=== PATIENT | male | born 1985 | race Caucasian/White ===

== ENCOUNTER 2017-11-24 11:21 | Observation (INO) | payer OTHER ==
[2017-11-24] MEDS ORDERED: Sodium Chloride 0.9% 1,000 ML IV ONE (12:24)
[2017-11-24] MEDS ORDERED: Sodium Chloride 0.9% 1,000 ML ONE (12:30)
--- NOTE | 2017-11-24 12:34 | C.PDOC ---
History Of Present Illness 32 year old male with history of heroin abuse presents to the ED requesting heroin detox. Patient states he used heroin IV with his last use being last night. Patient is also c/o of palpitations as well. Patient denies fever, chills , CP, SOB, cough, PE, SI/HI, abdominal pain. Time Seen by Provider: 11/24/17 12:08 Chief Complaint (Nursing): Substance Abuse History Per: Patient History/Exam Limitations: no limitations Onset/Duration Of Symptoms: Days Current Symptoms Are (Timing): Gone Suicide/Self Injury Attempted (Context): None Modifying Factor(s): Other (Heroin) Associated Symptoms: denies: Depression, Suicidal Thoughts, Suicidal Plan Involuntary Hold By: None Recent travel outside of the [place]: No Additional History Per: Patient Past Medical History Reviewed: Historical Data, Nursing Documentation, Vital Signs Vital Signs: Last Vital Signs Temp 98 F 11/24/17 11:30 Pulse 131 H 11/24/17 14:29 Resp 20 11/24/17 14:29 BP 108/64 11/24/17 14:29 Pulse Ox 100 11/24/17 15:32 - Medical History PMH: No Chronic Diseases Surgical History: No Surg Hx Family History: States: Unknown Family Hx - Social History Hx Alcohol Use: No Hx Substance Use: Yes - Immunization History Hx Tetanus Toxoid Vaccination: No Hx Influenza Vaccination: No Hx Pneumococcal Vaccination: No Review Of Systems Constitutional: Negative for: Fever, Chills Cardiovascular: Positive for: Palpitations Respiratory: Negative for: Cough, Shortness of Breath Gastrointestinal: Negative for: Nausea, Vomiting, Abdominal Pain Skin: Negative for: Rash Neurological: Negative for: Weakness, Numbness, Headache Psych: Negative for: Depression, Suicidal ideation Physical Exam - Physical Exam Appears: Non-toxic, No Acute Distress Skin: Normal Color, Warm, Dry Head: Atraumatic, Normacephalic Eye(s): bilateral: Normal Inspection Nose: No Discharge, No Deformity Oral Mucosa: Moist Neck: Normal ROM, Supple Chest: Symmetrical Cardiovascular: Rhythm Regular (tachycardic, ectopic beats), No Murmur Respiratory: Normal Breath Sounds, No Rales, No Rhonchi, No Wheezing Gastrointestinal/Abdominal: Soft, No Tenderness, No Guarding, No Rebound Extremity: Normal ROM, No Pedal Edema, No Calf Tenderness, No Deformity, No Swelling Neurological/Psych: Oriented x3, Normal Speech, Normal Cognition Gait: Steady ED Course And Treatment - Laboratory Results Result Diagrams: 11/24/17 12:42 11/24/17 12:42 ECG: Interpreted By Me, Viewed By Me ECG Rhythm: Sinus Tachycardia Interpretation Of ECG: tachycardic 133 BPM with PACs noted, no ST or T wave abnormalities Rate From EC O2 Sat by Pulse Oximetry: 100 (On RA) Pulse Ox Interpretation: Normal - Radiology CXR: Viewed By Me, Read By Radiologist CXR Interpretation: Yes: Cardiomegaly, Other (Mild retrocardiac atelectasis or pneumonia.) Medical Decision Making Medical Decision Making: Impression : palpitations/tachycardia/substance abuse Plan: * EKG * Labs * CXR * Ativan 0.5 mg IVP * Iv fluids * UA Patient will be 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 Disposition Discussed With Dr.: Nitin Buenrostro Doctor Will See Patient In The: Hospital Counseled Patient/Family Regarding: Studies Performed, Diagnosis - Disposition Disposition: HOSPITALIZED Disposition Time: 15:33 Condition: FAIR Forms: [facility] (Kazakh) - Clinical Impression Clinical Impression: Drug abuse, Arrhythmia - Scribe Statement The provider has reviewed the documentation as recorded by the Scribe Jose L Castellanos All medical record entries made by the Scribe were at my direction and personally dictated by me. I have reviewed the chart and agree that the record accurately reflects my personal performance of the history, physical exam, medical decision making, and the department course for this patient. I have also personally directed, reviewed, and agree with the discharge instructions and disposition.
[2017-11-24 12:47] LABS: BASO % 0.4 % (0.0-2.0); EOS # 0.4 K/uL (0.0-0.7); EOS % 5.3 % (0.0-4.0); LYMPH # 3.4 K/uL (1.0-4.3); LYMPH % 41.3 % (20.0-40.0); MEAN CORPUSCULAR HEMOGLOBIN 28.2 pg (27.0-31.0); MEAN CORPUSCULAR HGB CONC 34.3 g/dL (33.0-37.0); MEAN PLATELET VOLUME 7.7 fL (7.2-11.7); MONO # 0.5 K/uL (0.0-0.8); MONO % 5.8 % (0.0-10.0); NEUT # 3.9 K/uL (1.8-7.0); NEUT % 47.2 % (50.0-75.0); NRBC % 0.1 % (0.0-2.0); RBC 4.6 Mil/uL (4.40-5.90); RED CELL DISTRIBUTION WIDTH 12.4 % (11.5-14.5); WHITE BLOOD COUNT 8.2 K/uL (4.8-10.8)
[2017-11-24 12:58] LABS: ALB/GLOB RATIO 1.1 (1.0-2.1); ALBUMIN 3.9 g/dL (3.5-5.0); ALT/SGPT 34 U/L (21-72); AST/SGOT 21 U/L (17-59); BLOOD UREA NITROGEN 17 mg/dL (9-20); CALCIUM 8.6 mg/dl (8.6-10.4); GFR AFRICAN-AMERICAN > 60; GFR NON-AFRICAN AMERICAN > 60; PROTHROMBIN TIME 11.7 SECONDS (9.7-12.2)
--- NOTE | 2017-11-24 13:24 | RAD ---
HISTORY: chest pain COMPARISON: None available. TECHNIQUE: Chest PA and lateral FINDINGS: LUNGS: Mild retrocardiac atelectasis or pneumonia. Please note that chest x-ray has limited sensitivity for the detection of pulmonary masses. PLEURA: No significant pleural effusion identified. No definite pneumothorax . CARDIOVASCULAR: Cardiomegaly with CTR approximately 17.8/31.3. OSSEOUS STRUCTURES: No acute osseous abnormality identified. VISUALIZED UPPER ABDOMEN: Unremarkable. OTHER FINDINGS: None. IMPRESSION: Cardiomegaly. Mild retrocardiac atelectasis or pneumonia.
[2017-11-24 13:28] LABS: FREE T4 1.1 ng/dL (0.78-2.19)
[2017-11-24] MEDS ORDERED: Metoprolol 1 mg/ml Inj IVP ONE ×2 (14:42→15:50)
[2017-11-24 15:35] LABS: SQUAMOUS EPITHIAL < 1 /hpf (0-5); URINE BACTERIA RARE (<OCC); URINE BILIRUBIN NEGATIVE (NEGATIVE); URINE BLOOD NEGATIVE (NEGATIVE); URINE CLARITY Clear (Clear); URINE COLOR Yellow (YELLOW); URINE GLUCOSE (UA) NORMAL (Normal); URINE LEUKOCYTE ESTERASE NEG Leu/uL (Negative); URINE NITRATE NEGATIVE (NEGATIVE); URINE PROTEIN NEGATIVE (NEGATIVE); URINE UROBILINOGEN NORMAL mg/dL (0.2-1.0)
[2017-11-24 15:49] LABS: BARBITURATES, UR NEGATIVE (NEGATIVE); BENZODIAZEPINES, UR NEGATIVE (NEGATIVE); PHENCYCLIDINE, UR NEGATIVE (NEGATIVE)
[2017-11-24 15:50] LABS: OPIATES, UR POSITIVE (NEGATIVE)
[2017-11-24] MEDS ORDERED: Digoxin 500 mcg/2ml (0.5 mg/2ml) Inj ONE (18:22)
[2017-11-24] MEDS ORDERED: Digoxin 500 mcg/2ml (0.5 mg/2ml) Inj IVP ONE (19:25)
[2017-11-24 19:26] VITALS: PULSE 129
--- NOTE | 2017-11-24 20:25 | CP.PCM.HP ---
History of Present Illness - History of Present Illness History of Present Illness: 32 year old male with a no pertinent medical history comes into [facility] requesting detox from Heroin. The patient states that he has been a heroin user for about three years. The patient denies any inciting event leading to heroin abuse. The patient couldn't specify the specific amount at the time of the interview. The patient does report his last use was last night. The patient racing heart and palpitations. The patient denies any alleviating or modifying factors. The patient denies any chest pain, shortness of breath, fevers, chills, nausea, vomiting, headaches, changes in vision, abdomen pain, numbness or tingling in the lower and upper extremities or any other complaints. PMD: Denies Past medical history: Denies Medications: Erik Allergies: NKDA Surgical history: Right hand surgery Social history: Denies tobacco and illicit drug use. Last drink was 1 year ago. Heroin User for the past three years. Lives alone. Unemployed. Present on Admission - Present on Admission Any Indicators Present on Admission: No Review of Systems - Constitutional Constitutional: absent: Chills, Daytime Sleepiness, Headache, Night Sweats, Snoring, Weakness - EENT Eyes: absent: Blurred Vision, Discharge, Loss of Peripheral Vision, Requires Corrective Lenses, Other Visual Disturbances Ears: absent: Ear Discharge, Dizziness Nose/Mouth/Throat: absent: Nasal Congestion, Nose Pain, Bleeding Gums, Halitosis , Mouth Pain, Facial Pain - Cardiovascular Cardiovascular: Palpitations, Rapid Heart Rate. absent: Chest Pain, Diaphoresis , Irregular Heart Rhythm, Leg Edema, Lightheadedness, Orthopnea - Respiratory Respiratory: absent: Dyspnea, Hemoptysis, Stridor, Pain on Inspiration - Gastrointestinal Gastrointestinal: absent: Abdominal Pain, Change in Stool Character, Diarrhea, Dyspepsia, Dysphagia, Melena, Nausea, Temesmus, Vomiting - Genitourinary Genitourinary: absent: Hematuria, Freq UTI - Musculoskeletal Musculoskeletal: absent: Abnormal Gait, Arthralgias, Neck Pain, Stiffness, Tingling - Integumentary Integumentary: absent: Rash, Skin Pain, Sores, Unusual Bruising - Neurological Neurological: absent: Syncope, Tingling, Tremor, Vertigo, Weakness - Psychiatric Psychiatric: absent: Change in Appetite, Difficulty Concentrating, Panic Attacks - Endocrine Endocrine: absent: Polydipsia, Polyphagia, Polyuria Past Patient History - Past Social History Smoking Status: Heavy Smoker > 10 Cigarettes Daily - PSYCHIATRIC Hx Substance Use: Yes - SURGICAL HISTORY Hx Surgeries: Yes Other/Comment: RtCarol ariza surgery - ANESTHESIA Hx Anesthesia: No Hx Anesthesia Reactions: No Meds Allergies/Adverse Reactions: Allergies Allergy/AdvReac Type Severity Reaction Status Date / Time No Known Allergies Allergy Unverified 11/24/17 11:32 Physical Exam - Head Exam Head Exam: ATRAUMATIC, NORMAL INSPECTION, NORMOCEPHALIC - Eye Exam Eye Exam: EOMI, Normal appearance, PERRL Pupil Exam: NORMAL ACCOMODATION, PERRL - ENT Exam ENT Exam: Mucous Membranes Moist, Normal Oropharynx - Neck Exam Neck exam: Positive for: Normal Inspection. Negative for: Lymphadenopathy, Thyromegaly - Respiratory Exam Respiratory Exam: Clear to Auscultation Bilateral, NORMAL BREATHING PATTERN. absent: Chest Wall Tenderness, Prolonged Expiratory Phase, Respiratory Distress - Cardiovascular Exam Cardiovascular Exam: Tachycardia, REGULAR RHYTHM, RRR, +S1, +S2. absent: Gallop , Rubs - GI/Abdominal Exam GI & Abdominal Exam: Normal Bowel Sounds, Soft. absent: Distended, Hypoactive Bowel Sounds, Organomegaly, Tenderness - Extremities Exam Extremities exam: Positive for: full ROM, normal inspection. Negative for: joint swelling, pedal edema - Back Exam Back exam: NORMAL INSPECTION. absent: CVA tenderness (L), CVA tenderness (R), paraspinal tenderness - Neurological Exam Neurological exam: Alert, CN II-XII Intact, Normal Gait, Oriented x3 - Psychiatric Exam Psychiatric exam: Normal Affect, Normal Mood - Skin Skin Exam: Dry, Intact, Normal Color, Warm Results - Vital Signs Recent Vital Signs: Last Vital Signs Temp 98.9 F 11/24/17 19:15 Pulse 124 H 11/24/17 19:15 Resp 18 11/24/17 19:15 BP 107/74 11/24/17 19:15 Pulse Ox 96 11/24/17 19:15 - Labs Result Diagrams: 11/24/17 12:42 11/24/17 12:42 Labs: Laboratory Results - last 24 hr 11/24/17 11/24/17 11/24/17 12:42 12:42 12:42 WBC 8.2 RBC 4.60 Hgb 13.0 Hct 37.8 MCV 82.0 MCH 28.2 MCHC 34.3 RDW 12.4 Plt Count 328 MPV 7.7 Neut % (Auto) 47.2 L Lymph % (Auto) 41.3 H [place] % (Auto) 5.8 Eos % (Auto) 5.3 H Baso % (Auto) 0.4 Neut # 3.9 Lymph # 3.4 Jackson # 0.5 Eos # 0.4 Baso # 0.0 PT 11.7 INR 1.0 APTT 31 D-Dimer, Quantitative 240 Sodium 132 Potassium 3.8 Chloride 98 Carbon Dioxide 25 Anion Gap 12 BUN 17 Creatinine 0.7 L Est GFR ( Amer) > 60 Est GFR (Non-Af Amer) > 60 Random Glucose 108 Calcium 8.6 Total Bilirubin 0.4 AST 21 ALT 34 Alkaline Phosphatase 108 Troponin I < 0.0120 Total Protein 7.4 Albumin 3.9 Globulin 3.5 Albumin/Globulin Ratio 1.1 Free T4 TSH 3rd Generation Urine Color Urine Clarity Urine pH Ur Specific [place] Urine Protein Urine Glucose (UA) Urine Ketones Urine Blood Urine Nitrate Urine Bilirubin Urine Urobilinogen Ur Leukocyte Esterase Urine WBC (Auto) Ur Squamous Epith Cells Urine Bacteria Urine Opiates Screen Urine Methadone Screen Ur Barbiturates Screen Ur Phencyclidine Scrn Ur Amphetamines Screen U Benzodiazepines Scrn U Oth Cocaine Metabols U Cannabinoids Screen Alcohol, Quantitative < 10 11/24/17 11/24/17 11/24/17 12:42 15:24 15:24 WBC RBC Hgb Hct MCV MCH MCHC RDW Plt Count MPV Neut % (Auto) Lymph % (Auto) [place] % (Auto) Eos % (Auto) Baso % (Auto) Neut # Lymph # Jackson # Eos # Baso # PT INR APTT D-Dimer, Quantitative Sodium Potassium Chloride Carbon Dioxide Anion Gap BUN Creatinine Est GFR ( Amer) Est GFR (Non-Af Amer) Random Glucose Calcium Total Bilirubin AST ALT Alkaline Phosphatase Troponin I Total Protein Albumin Globulin Albumin/Globulin Ratio Free T4 1.10 TSH 3rd Generation 2.39 Urine Color Yellow Urine Clarity Clear Urine pH 5.0 Ur Specific [place] 1.025 Urine Protein Negative Urine Glucose (UA) Normal Urine Ketones Negative Urine Blood Negative Urine Nitrate Negative Urine Bilirubin Negative Urine Urobilinogen Normal Ur Leukocyte Esterase Neg Urine WBC (Auto) < 1 Ur Squamous Epith Cells < 1 Urine Bacteria Rare Urine Opiates Screen Positive H Urine Methadone Screen Negative Ur Barbiturates Screen Negative Ur Phencyclidine Scrn Negative Ur Amphetamines Screen Negative U Benzodiazepines Scrn Negative U Oth Cocaine Metabols Negative U Cannabinoids Screen Negative Alcohol, Quantitative Assessment & Plan - Assessment and Plan (Free Text) Assessment: 32 year old with a past medical history of heroin abuse admitted for new onset atrial fibrillation. Plan: 1.Atrial fibrillation -Patient irregular rhythm broke and now is Sinus tacky at 128. -Will continue to monitor. -Echo ordered. Will f/u with results. -Troponins (-)x1. Will f/u with the remaining 2 Troponins and EKG. -Cardiology(Dr. Frank) consulted. Will f/u with results. 2.Heroin Detox -Psych consulted (Dr. Maikol Fall) -Clonidine .1mg PO Q8 prn Ppx -SCD's -Protonix 40mg Daily Discussed with Dr. Nitin Buenrosrto.
[2017-11-25 00:33] VITALS: RESP 20
[2017-11-25 04:42] LABS: MEAN PLATELET VOLUME 7.5 fL (7.2-11.7)
[2017-11-25 04:46] LABS: BASO % 0.4 % (0.0-2.0); EOS # 0.3 K/uL (0.0-0.7); EOS % 3.3 % (0.0-4.0); HEMOGLOBIN 14.5 g/dL (12.0-18.0); LYMPH # 2.3 K/uL (1.0-4.3); LYMPH % 27.5 % (20.0-40.0); MEAN CORPUSCULAR HEMOGLOBIN 28.3 pg (27.0-31.0); MEAN CORPUSCULAR HGB CONC 34.9 g/dL (33.0-37.0); MONO # 0.4 K/uL (0.0-0.8); MONO % 4.9 % (0.0-10.0); NEUT # 5.3 K/uL (1.8-7.0); NEUT % 63.9 % (50.0-75.0); NRBC % 0.1 % (0.0-2.0); RBC 5.14 Mil/uL (4.40-5.90); RED CELL DISTRIBUTION WIDTH 12.7 % (11.5-14.5); WHITE BLOOD COUNT 8.3 K/uL (4.8-10.8)
[2017-11-25 04:58] LABS: ALB/GLOB RATIO 1.1 (1.0-2.1); ALT/SGPT 33 U/L (21-72); AST/SGOT 23 U/L (17-59); BLOOD UREA NITROGEN 12 mg/dL (9-20); CALCIUM 9.4 mg/dl (8.6-10.4); GFR AFRICAN-AMERICAN > 60; GFR NON-AFRICAN AMERICAN > 60
[2017-11-25 08:03] VITALS: TEMP 98.5; O2SAT 97
[2017-11-25] MEDS ORDERED: Enoxaparin 80 mg Syringe SC SCH (10:45)
--- NOTE | 2017-11-25 11:19 | CP.PCM.PN ---
Subjective - Date & Time of Evaluation Date of Evaluation: 11/25/17 Time of Evaluation: 06:17 - Subjective Subjective: Dr. Nitin Farmer, [place] Captain-PGY1 Patient was seen and examined at bedside. Per nursing, no acute events occurred overnight. The patient reports feeling fine this morning. He says he feels a little bit of his heart racing fast but only when he get up to go to the restroom. The patient denies any chest pain, shortness of breath, fevers, chills, changes in vision, lightheadedness, abdominal pain, constipation, diarrhea, or any other complaints. Objective - Vital Signs/Intake and Output Vital Signs (last 24 hours): Temp Pulse Resp BP Pulse Ox 98.5 F 130 H 20 109/73 97 11/25/17 07:00 11/25/17 07:00 11/25/17 07:00 11/25/17 07:00 11/25/17 07:00 Intake and Output: 11/25/17 11/25/17 06:59 18:59 Output Total 800 Balance -800 - Medications Medications: Current Medications Carvedilol (Coreg) 3.125 mg PO BID ANTON Clonidine HCl (Catapres) 0.1 mg PO Q8 ANTON Enoxaparin Sodium (Lovenox) 80 mg SC Q12 ANTON Lisinopril (Zestril) 5 mg PO DAILY ANTON Pantoprazole Sodium (Protonix Inj) 40 mg IVP DAILY ANTON Last Admin: 11/25/17 09:52 Dose: 40 mg Pneumococcal Polyvalent Vaccine (Pneumovax 23 Vaccine) 0.5 ml IM .ONCE ONE Stop: 11/26/17 10:01 - Labs Labs: 11/25/17 04:38 11/25/17 04:38 PT 11.7 SECONDS (9.7-12.2) 11/24/17 12:42 INR 1.0 11/24/17 12:42 APTT 31 SECONDS (21-34) 11/24/17 12:42 - Head Exam Head Exam: ATRAUMATIC, NORMAL INSPECTION, NORMOCEPHALIC - Eye Exam Eye Exam: EOMI, Normal appearance, PERRL Pupil Exam: NORMAL ACCOMODATION, PERRL. absent: Irregular, Unequal - ENT Exam ENT Exam: Mucous Membranes Moist, Normal Exam, Normal Oropharynx - Neck Exam Neck Exam: Normal Inspection. absent: Lymphadenopathy, Thyromegaly - Respiratory Exam Respiratory Exam: Clear to Ausculation Bilateral, NORMAL BREATHING PATTERN. absent: Chest Wall Tenderness, Prolonged Expiratory Phase, Respiratory Distress - Cardiovascular Exam Cardiovascular Exam: REGULAR RHYTHM, +S1, +S2 - GI/Abdominal Exam GI & Abdominal Exam: Soft, Normal Bowel Sounds. absent: Rigid, Tenderness - Extremities Exam Additional comments: Track kim noted bilateral upper extremities. - Back Exam Back Exam: NORMAL INSPECTION. absent: CVA tenderness (L), CVA tenderness (R), paraspinal tenderness - Neurological Exam Neurological Exam: Alert, Awake, CN II-XII Intact, Oriented x3 - Psychiatric Exam Psychiatric exam: Normal Affect, Normal Mood - Skin Skin Exam: Dry, Intact Assessment and Plan - Assessment and Plan (Free Text) Assessment: 32 year old with a past medical history of heroin abuse admitted for new onset atrial fibrillation. Plan: 1.Atrial fibrillation -Patient irregular rhythm broke and now is Sinus tacky at 128. -Will continue to monitor. -Echo ordered. Will f/u with results. -Troponins (-)x3. -EKG showed 1st degree and 2nd degree heart block. Dr. Frank was made aware. -Cardiology(Dr. Frank) consulted. Will f/u with results. 2.Heroin Detox -Psych consulted (Dr. Maikol Fall) -Continue Clonidine .1mg PO Q8 prn Ppx -SCD's -Protonix 40mg Daily
--- NOTE | 2017-11-25 12:50 | PCM.PSYCH ---
Initial Psychiatric Evaluation - Initial Psychiatric Evaluation Type of Admission: Voluntary Legal Status: Capacity Past Psychiatric History - Past Psychiatric History Pertinent Medical Hx (Current Medical&Sleep Prob, Allergies): Allergies Allergy/AdvReac Type Severity Reaction Status Date / Time No Known Allergies Allergy Unverified 11/24/17 11:32 No Known Home Med 11/24/17
--- NOTE | 2017-11-25 12:53 | CP.PCM.DIS ---
Provider - Provider Date of Admission: 11/24/17 15:32 Attending physician: Nitin Buenrostro MD Primary care physician: PMD: None Consults: Psychiatry: Maikol Thurston Cardiology:Dr. Frank Time Spent in preparation of Discharge (in minutes): 45 Hospital Course - Lab Results Lab Results: Most Recent Lab Values WBC 8.3 K/uL (4.8-10.8) 11/25/17 04:38 RBC 5.14 Mil/uL (4.40-5.90) 11/25/17 04:38 Hgb 14.5 g/dL (12.0-18.0) 11/25/17 04:38 Hct 41.6 % (35.0-51.0) 11/25/17 04:38 MCV 81.0 fL (80.0-94.0) 11/25/17 04:38 MCH 28.3 pg (27.0-31.0) 11/25/17 04:38 MCHC 34.9 g/dL (33.0-37.0) 11/25/17 04:38 RDW 12.7 % (11.5-14.5) 11/25/17 04:38 Plt Count 350 K/uL (130-400) 11/25/17 04:38 MPV 7.5 fL (7.2-11.7) 11/25/17 04:38 Neut % (Auto) 63.9 % (50.0-75.0) 11/25/17 04:38 Lymph % (Auto) 27.5 % (20.0-40.0) 11/25/17 04:38 [place] % (Auto) 4.9 % (0.0-10.0) 11/25/17 04:38 Eos % (Auto) 3.3 % (0.0-4.0) 11/25/17 04:38 Baso % (Auto) 0.4 % (0.0-2.0) 11/25/17 04:38 Neut # 5.3 K/uL (1.8-7.0) 11/25/17 04:38 Lymph # 2.3 K/uL (1.0-4.3) 11/25/17 04:38 [place] # 0.4 K/uL (0.0-0.8) 11/25/17 04:38 Eos # 0.3 K/uL (0.0-0.7) 11/25/17 04:38 Baso # 0.0 K/uL (0.0-0.2) 11/25/17 04:38 PT 11.7 SECONDS (9.7-12.2) 11/24/17 12:42 INR 1.0 11/24/17 12:42 APTT 31 SECONDS (21-34) 11/24/17 12:42 D-Dimer, Quantitative 240 ng/mlDDU (0-243) 11/24/17 12:42 Sodium 136 mmol/L (132-148) 11/25/17 04:38 Potassium 4.2 mmol/L (3.6-5.2) 11/25/17 04:38 Chloride 105 mmol/L (98-107) 11/25/17 04:38 Carbon Dioxide 24 mmol/L (22-30) 11/25/17 04:38 Anion Gap 11 (10-20) 11/25/17 04:38 BUN 12 mg/dL (9-20) 11/25/17 04:38 Creatinine 0.7 mg/dL (0.8-1.5) L 11/25/17 04:38 Est GFR ( Amer) > 60 11/25/17 04:38 Est GFR (Non-Af Amer) > 60 11/25/17 04:38 Random Glucose 104 mg/dL (75-110) 11/25/17 04:38 Calcium 9.4 mg/dl (8.6-10.4) 11/25/17 04:38 Total Bilirubin 0.7 mg/dL (0.2-1.3) 11/25/17 04:38 AST 23 U/L (17-59) 11/25/17 04:38 ALT 33 U/L (21-72) 11/25/17 04:38 Alkaline Phosphatase 114 U/L (38-126) 11/25/17 04:38 Troponin I < 0.0120 ng/mL (0.00-0.120) 11/25/17 04:38 Total Protein 7.6 g/dL (6.3-8.3) 11/25/17 04:38 Albumin 4.0 g/dL (3.5-5.0) 11/25/17 04:38 Globulin 3.6 gm/dL (2.2-3.9) 11/25/17 04:38 Albumin/Globulin Ratio 1.1 (1.0-2.1) 11/25/17 04:38 Free T4 1.10 ng/dL (0.78-2.19) 11/24/17 12:42 TSH 3rd Generation 2.39 mIU/L (0.46-4.68) 11/24/17 12:42 Urine Color Yellow (YELLOW) 11/24/17 15:24 Urine Clarity Clear (Clear) 11/24/17 15:24 Urine pH 5.0 (5.0-8.0) 11/24/17 15:24 Ur Specific [place] 1.025 (1.003-1.030) 11/24/17 15:24 Urine Protein Negative mg/dL (NEGATIVE) 11/24/17 15:24 Urine Glucose (UA) Normal mg/dL (Normal) 11/24/17 15:24 Urine Ketones Negative mg/dL (NEGATIVE) 11/24/17 15:24 Urine Blood Negative (NEGATIVE) 11/24/17 15:24 Urine Nitrate Negative (NEGATIVE) 11/24/17 15:24 Urine Bilirubin Negative (NEGATIVE) 11/24/17 15:24 Urine Urobilinogen Normal mg/dL (0.2-1.0) 11/24/17 15:24 Ur Leukocyte Esterase Neg [place]/uL (Negative) 11/24/17 15:24 Urine WBC (Auto) < 1 /hpf (0-5) 11/24/17 15:24 Ur Squamous Epith Cells < 1 /hpf (0-5) 11/24/17 15:24 Urine Bacteria Rare (<OCC) 11/24/17 15:24 Urine Opiates Screen Positive (NEGATIVE) H 11/24/17 15:24 Urine Methadone Screen Negative (NEGATIVE) 11/24/17 15:24 Ur Barbiturates Screen Negative (NEGATIVE) 11/24/17 15:24 Ur Phencyclidine Scrn Negative (NEGATIVE) 11/24/17 15:24 Ur Amphetamines Screen Negative (NEGATIVE) 11/24/17 15:24 U Benzodiazepines Scrn Negative (NEGATIVE) 11/24/17 15:24 U Oth Cocaine Metabols Negative (NEGATIVE) 11/24/17 15:24 U Cannabinoids Screen Negative (NEGATIVE) 11/24/17 15:24 Alcohol, Quantitative < 10 mg/dl (0-10) 11/24/17 12:42 - Hospital Course Hospital Course: PMD: None Consults: Cardiology (Dr. Frank) Psychiatry (Maikol Thurston) PRINCIPAL DISCHARGE DIAGNOSES: Heroin Abuse CC: AMS HISTORY OF PRESENT ILLNESS:32 year old male with a no pertinent medical history comes into [facility] requesting detox from Heroin. The patient states that he has been a heroin user for about three years. The patient denies any inciting event leading to heroin abuse. The patient couldn't specify the specific amount at the time of the interview. The patient does report his last use was last night. The patient racing heart and palpitations. The patient denies any alleviating or modifying factors. The patient denies any chest pain, shortness of breath, fevers, chills, nausea, vomiting, headaches, changes in vision, abdomen pain, numbness or tingling in the lower and upper extremities or any other complaints. SUMMARY OF COURSE: 32 year old male admitted to [facility] between 11/24/17 -11/25/17 seeking heroin detox. While in the hospital it he was found to be in rapid atrial fibrillation with RVR. He was given 10mg Cardizem and 5mg Labetolol that converted him to sinus rhythm. Troponins were found to be negative times three. Repeat EKG showed the patient was going between 1st and 2nd degree heart block. We alerted Dr. Frank of this in the morning. While admitted the patient was seen by Eufemia Tim. The patient later in the day was found to be in rapid Afib. A cardizem 10mg push was ordered. However when I went to go administer it the patient was found to have eloped. A code ECHO was called in hopes of finding him however we couldn't locate the patient. Imaging: ECG 11/25: Rapid atrial fibrillation Echo: Taken. Not officially read before discharge. Disposition: Patient eloped with line still in place. Advised the patient to remain in the room so we could administer the Cardizem. Stressed to the patient the importance of staying and that his heart rate was dangerously high. Patient said that he couldn't wait. Upon returning to the room the patient had eloped. Code Echo was called in hopes of catching him before he left but we were unsuccessful. Discharge Exam - Head Exam Head Exam: ATRAUMATIC, NORMAL INSPECTION, NORMOCEPHALIC Additional comments: Patient ELOPED. Unable to do exam. Discharge Plan - Follow Up Plan Condition: FAIR Disposition: ELOPED FROM NURSING UNIT
--- NOTE | 2017-11-25 15:52 | CARD ---
APPROVED REPORT EXAM: Two-dimensional and M-mode echocardiogram with Doppler and color Doppler. Other Information Quality : GoodRhythm : Atrial Fibrillation INDICATION Abnormal EKG/Arrhythmia Heroin Abuse 2D DIMENSIONS IVSd1.1 (0.7-1.1cm)LVDd5.3 (3.9-5.9cm) PWd1.1 (0.7-1.1cm)LVDs4.7 (2.5-4.0cm) FS (%) 9.7 %LVEF (%)21.1 (>50%) M-Mode DIMENSIONS RVDd2.41 (2.1-3.2cm)Left Atrium (MM)3.61 (2.5-4.0cm) IVSd1.12 (0.7-1.1cm)Aortic Root2.67 (2.2-3.7cm) LVDd5.50 (4.0-5.6cm)Aortic Cusp Exc.2.03 (1.5-2.0cm) PWd0.94 (0.7-1.1cm)FS (%) 7 % LVDs5.09 (2.0-3.8cm)LVEF (%)16 (>50%) Mitral Valve MV E Gzzvpmgi09.9cm/sMV A Kderywvo344.0cm/sE/A ratio0.8 TDI E/Lateral E'0.0E/Medial E'0.0 Tricuspid Valve TR Peak Nxbuumwj353cp/sTR Peak Gr.38rwImDTHM80tiKj LEFT VENTRICLE The left ventricle is normal size. There is normal left ventricular wall thickness. The left ventricular function is severely reduced, with diffuse hypokinesis. Septal wall motion is worse. The left ventricular ejection fraction is about 15%. No regional wall motion abnormalities noted. The left ventricular diastolic function is indeterminate. tissue doppler is c/w elevated left atrial pressure. No left ventricle thrombus noted on this study. There is no ventricular septal defect visualized. There is no left ventricular aneurysm. There is no mass noted in the left ventricle. RIGHT VENTRICLE The right ventricle ismildly dilated There is normal right ventricular wall thickness. The right ventricular systolic function is moderately reduced. ATRIA The left atrial volume index is midl to modertely increased. The right atrium is moderately increased. The interatrial septum is intact with no evidence for an atrial septal defect. AORTIC VALVE The aortic valve is normal in structure and function. No aortic regurgitation is present. There is no aortic valvular stenosis. There is no aortic valvular vegetation. MITRAL VALVE The mitral valve is normal in structure and function. There is no evidence of mitral valve prolapse. There is no mitral valve stenosis. There is no mitral valve regurgitation noted. TRICUSPID VALVE The tricuspid valve is normal in structure and function. There is mild tricuspid valve regurgitation noted. Estimated PA sysolic pressure is 40 mm Hg There is no tricuspid valve prolapse or vegetation. There is no tricuspid valve stenosis. PULMONIC VALVE The pulmonary valve is normal in structure and function. There is no pulmonic valvular regurgitation. There is no pulmonic valvular stenosis. GREAT VESSELS The aortic root is normal in size. The ascending aorta is normal in size. The pulmonary artery is normal. The IVC is dilated and collapses <50% with inspiration. PERICARDIAL EFFUSION The pericardium appears normal. There is no pleural effusion. <Conclusion> Left ventricular function is severely reduced, with diffuse hypokinesis. Septal wall motion is worse. Left ventricular ejection fraction is about 15%. Left ventricular diastolic function is indeterminate. Tissue doppler is c/w elevated left atrial pressure. Right ventricular systolic function is moderately reduced. Left atrial volume index is mldl to moderately increased. Right atrium size is moderately increased.
--- NOTE | 2017-11-25 16:22 | CARD ---
APPROVED REPORT EKG Measurement Heart [id number] P43 [id number] <Conclusion> Normal Sinus with runs of atrial tachcyardia Abnormal ECG
--- NOTE | 2017-11-25 16:23 | CARD ---
APPROVED REPORT EKG Measurement Heart [id number] <Conclusion> Atrial tachycardia Otherwise normal ECG
[2017-11-25 18:24] VITALS: BP 109/76; PULSE 156
[2017-11-26] MEDS ORDERED: Influenza Vaccine 60 mcg/0.5 mL SYR (4YR UP) IM ONE (10:00)
[2017-11-26] MEDS ORDERED: Pneumococcal 23-Valent Vaccine IM ONE (10:00)
--- NOTE | 2017-11-26 12:48 | CARD ---
APPROVED REPORT EKG Measurement Heart [id number] DC 224P [id number] <Conclusion> Chaotic atrial tachycardia Abnormal EKG
== END 2017-11-25 12:46 | disposition left against medical advice (07) ==
LOC: C.ER 11:21 → C.9E 15:32 → C.6T 17:27
PROVIDERS: ADMIT Family Medicine; ATTEND Family Medicine
DX: I48.91 Unspecified atrial fibrillation (principal); F11.10 Opioid abuse, uncomplicated
CPT/HCPCS: 36415; 71046; 80053; 80320; 80324; 80345; 80346; 80349; 80353; 80358; 80361; 81001; 83992; 84439; 84443; 84484; 85025; 85378; 85610; 85730; 93005; 93306; 96360; 96374; 99285; C9113; G0378; J1160; J2060; J7040

== ENCOUNTER 2018-09-07 21:08 | Observation (INO) | payer MEDICAID ==
[2018-09-07 21:08] VITALS: PULSE 129
[2018-09-07] MEDS ORDERED: Lidocaine 1% Inj (20ml) INFIL ONE (22:25)
[2018-09-07] MEDS ORDERED: Lidocaine Hydrochloride 5 ML INJ ONE (22:26)
[2018-09-07 22:27] LABS: BASO % 0.3 % (0.0-2.0); EOS # 0.1 K/uL (0.0-0.7); MONO # 0.7 K/uL (0.0-0.8); RBC 4.83 Mil/uL (4.40-5.90)
[2018-09-07 22:32] LABS: ALB/GLOB RATIO 1.3 (1.0-2.1); ALBUMIN 4.5 g/dL (3.5-5.0); ALT/SGPT 23 U/L (21-72); AST/SGOT 29 U/L (17-59); BLOOD UREA NITROGEN 14 mg/dL (9-20); CALCIUM 9.4 mg/dl (8.6-10.4); GFR NON-AFRICAN AMERICAN > 60
--- NOTE | 2018-09-07 22:33 | C.PDOC ---
History Of Present Illness 33 year old male with PMHx of IVDA presents to the ED for evaluation of left wrist distal aspect pain and swelling. Patient denies fever, chills, nausea, vomit, diarrhea, skin popping, weakness, numbness. <Sharla Hooks - Last Filed: 09/07/18 22:54> History Per: Patient History/Exam Limitations: no limitations Onset/Duration Of Symptoms: Days Current Symptoms Are (Timing): Still Present Quality: "Pain" Recent travel outside of the [place]: No Additional History Per: Patient <Sharla Hooks - Last Filed: 09/07/18 22:54> <Paris Lees - Last Filed: 09/08/18 00:38> Time Seen by Provider: 09/07/18 21:23 Chief Complaint (Nursing): Upper Extremity Problem/Injury Past Medical History Reviewed: Historical Data, Nursing Documentation, Vital Signs Vital Signs: Last Vital Signs Temp 98.4 F 09/07/18 21:17 Pulse 75 09/07/18 21:17 Resp 18 09/07/18 21:17 BP 134/78 09/07/18 21:17 Pulse Ox 100 09/07/18 21:17 - Medical History Other PMH: IVDA Surgical History: No Surg Hx Family History: States: Unknown Family Hx - Social History Hx Alcohol Use: No Hx Substance Use: No - Immunization History Hx Tetanus Toxoid Vaccination: No Hx Influenza Vaccination: No Hx Pneumococcal Vaccination: No <Sharla Hooks - Last Filed: 09/07/18 22:54> Vital Signs: Last Vital Signs Temp 98.9 F 09/07/18 23:40 Pulse 66 09/07/18 23:40 Resp 18 09/07/18 23:40 BP 103/64 09/07/18 23:40 Pulse Ox 98 09/07/18 23:40 <Paris Lees - Last Filed: 09/08/18 00:38> Review Of Systems Constitutional: Negative for: Fever, Chills Cardiovascular: Negative for: Chest Pain Respiratory: Negative for: Shortness of Breath Gastrointestinal: Negative for: Nausea, Vomiting Musculoskeletal: Positive for: Arm Pain Skin: Positive for: Other (swelling) Neurological: Negative for: Weakness, Numbness <Sharla Hooks - Last Filed: 09/07/18 22:54> Physical Exam - Physical Exam Appears: Non-toxic, No Acute Distress Skin: Normal Color, Warm, Dry Head: Atraumatic, Normacephalic Eye(s): bilateral: Normal Inspection Extremity: Normal ROM, Tenderness (left distasl left wrist), Capillary Refill (< 2 seconds), Swelling (3-4 cm fluctuant mass with overlying erythema left anterior distal forearm. entire forearm warm to touch and mildly swollen.), Other (left arm warm) Pulses: Left Radial: Normal, Right Radial: Normal Neurological/Psych: Oriented x3, Normal Speech, Normal Cognition, Normal Motor, Normal Sensation Gait: Steady <Sharla Hooks - Last Filed: 09/07/18 22:54> ED Course And Treatment - Laboratory Results Result Diagrams: 09/07/18 22:12 09/07/18 22:12 O2 Sat by Pulse Oximetry: 100 (On RA) Pulse Ox Interpretation: Normal - Other Rad Left wrist X-Ray X-Ray: Interpreted by Me, Viewed By Me Interpretation: no fracture or dislocation <Sharla Hooks Last Filed: 09/07/18 22:54> - Laboratory Results Result Diagrams: 09/07/18 22:12 09/07/18 22:12 <Paris Lees - Last Filed: 09/08/18 00:38> - Incision & Drainage Of Abscess Anesthesia: Lidocaine 1% Used During Procedure: Continuous Pulse Oximetry Prep Used: Betadine Procedure: Incised W/Scalpel Blade#: (11), Drained Pus, Irrigated Cavity W/Saline, Probed To Break Up Loculations, Packed W/Gauze, Cultures Obtained And Sent To Lab <Sharla Hooks Last Filed: 09/07/18 22:54> Medical Decision Making Medical Decision Making: Plan: * Labs * Blood culture * Wound culture * Left forearm X-Ray abscess i and d ]discussed with Dr Schmitt. will admot to his service <Sharla Hooks Last Filed: 09/07/18 22:54> Disposition Discussed With : Curry Schmitt Doctor Will See Patient In The: Hospital - Disposition Disposition Time: 22:50 <Sharla Hooks Last Filed: 09/07/18 22:54> <Paris Lees Last Filed: 09/08/18 00:38> - Disposition Disposition: HOSPITALIZED Condition: GOOD - Clinical Impression Clinical Impression: Left arm cellulitis, Cutaneous abscess of left upper extremity - PA / PATTERNMAKER GRADER / Resident Statement MD/ has reviewed & agrees with the documentation as recorded. - Scribe Statement The provider has reviewed the documentation as recorded by the Scribe Jose L Castellanos All medical record entries made by the Scribe were at my direction and persona lly dictated by me. I have reviewed the chart and agree that the record accurately reflects my personal performance of the history, physical exam, medical decision making, and the department course for this patient. I have also personally directed, reviewed, and agree with the discharge instructions and disposition. <Sharla Hooks - Last Filed: 09/07/18 22:54> - PA / PATTERNMAKER GRADER / Resident Statement / has examined the patient and agrees with the treatment plan. <Paris Lees - Last Filed: 09/08/18 00:38>
[2018-09-07 22:43] LABS: EOS % 0.8 % (0.0-4.0); HEMOGLOBIN 13.4 g/dL (12.0-18.0); LYMPH # 2.9 K/uL (1.0-4.3); LYMPH % 23.7 % (20.0-40.0); MEAN CELL VOLUME 81.9 fL (80.0-94.0); MEAN CORPUSCULAR HEMOGLOBIN 27.9 pg (27.0-31.0); MEAN PLATELET VOLUME 8.6 fL (7.2-11.7); MONO % 5.9 % (0.0-10.0); NEUT # 8.6 K/uL (1.8-7.0); NEUT % 69.3 % (50.0-75.0); NRBC % 0.1 % (0.0-2.0); RED CELL DISTRIBUTION WIDTH 12.5 % (11.5-14.5); WHITE BLOOD COUNT 12.3 K/uL (4.8-10.8)
[2018-09-07] MEDS ORDERED: Piperacillin/Tazobact 3.375 GM in Sodium Chloride 100 ML IVPB STA (22:48)
[2018-09-07] MEDS ORDERED: Vancomycin 1 gm/NS 200 ml 1 GM/200 ML BAG IVPB ONE (22:48)
[2018-09-07] MEDS ORDERED: Piperacillin/Tazobact 3.375 gm 100 ML IVPB ONE (22:58)
[2018-09-07] MEDS ORDERED: Vancomycin 1 GM 1 GM/250 ML BAG IVPB ONE (22:58)
--- NOTE | 2018-09-08 01:20 | CP.PCM.HP ---
<Mariaa Mclaughlin P - Last Filed: 09/08/18 03:10> History of Present Illness - History of Present Illness History of Present Illness: H&P for hospitalist service. HPI: 33 year old male with PMHx of IVDA and atrial fibrillation presents to the ED for pain and swelling to L wrist that began 4 days ago. Pain is 7/10 and throbbing. States he took an antibiotic from a pharmacy without improvement of symptoms. Denies trauma, insect bite, . Denies fever, chills, numbness, tingling, diaphoresis, dizziness, lighteadedness, weakness, headache, chest pain, palpitations, shortness of breath, cough, abdominal pain, nausea, vomiting, diarrhea, constipation, hematochezia, dyusuria, frequency. PMHx: IVDA, Atrial fibrillation, possible heart failure (LVEF 15%) PSHx: R hand surgery 2013 Meds: none Allergies: NKDA Social: IV Heroin use, 6 bags per day for the past 3 years. Denies any other illicit drugs. Smokes 3 cigarettes per day for the past 3 years. Denies alcohol use. Works in construction. Family Hx: Denies Proxy: Cousin, Art [phone] Full code Present on Admission - Present on Admission Any Indicators Present on Admission: No Review of Systems - Constitutional Constitutional: absent: Chills, Fatigue, Headache, Malaise, Night Sweats, Snoring - EENT Eyes: absent: Change in Vision, Irritation, Pain Nose/Mouth/Throat: absent: Sore Throat - Cardiovascular Cardiovascular: absent: Chest Pain, Claudication, Diaphoresis, Dyspnea on Exertion, Pain Radiating to Arm/Neck/Jaw, Leg Edema, Lightheadedness, Palpitations - Respiratory Respiratory: absent: Cough, Dyspnea, Hemoptysis, Pain on Inspiration - Gastrointestinal Gastrointestinal: absent: Abdominal Pain, Cramping, Diarrhea, Heartburn, Hematochezia, Melena, Nausea, Vomiting - Genitourinary Genitourinary: absent: Difficulty Urinating, Dysuria, Hematuria - Musculoskeletal Musculoskeletal: absent: Abnormal Gait, Joint Swelling, Limited Range of Motion - Integumentary Integumentary: Swelling, Other (abscess) - Neurological Neurological: absent: Abnormal Hearing, Behavioral Changes, Convulsions, Dizziness, Lack of Coordination, Loss of Vision, Paresthesias, Weakness, Other Visual Disturbances - Psychiatric Psychiatric: Other (heroin use). absent: Hallucinations, Visual Hallucinations, Tactile Hallucinations Past Patient History - Infectious Disease Hx of Infectious Diseases: None - Past Social History Smoking Status: Current Some Days Smoker - PSYCHIATRIC Hx Substance Use: No - SURGICAL HISTORY Hx Surgeries: Yes Other/Comment: Rt. hand surgery - ANESTHESIA Hx Anesthesia: No Hx Anesthesia Reactions: No Meds Allergies/Adverse Reactions: Allergies Allergy/AdvReac Type Severity Reaction Status Date / Time No Known Allergies Allergy Unverified 09/07/18 21:16 Physical Exam - Constitutional Appears: Non-toxic, No Acute Distress - Head Exam Head Exam: ATRAUMATIC, NORMOCEPHALIC - Eye Exam Eye Exam: EOMI, Normal appearance, PERRL - ENT Exam ENT Exam: Mucous Membranes Moist - Neck Exam Neck exam: Positive for: Full Rom, Normal Inspection - Respiratory Exam Respiratory Exam: Clear to Auscultation Bilateral, NORMAL BREATHING PATTERN. absent: Decreased Breath Sounds, Rales, Rhonchi, Wheezes - Cardiovascular Exam Cardiovascular Exam: Irregular Rhythm, +S1, +S2. absent: REGULAR RHYTHM, JVD, Systolic Murmur - GI/Abdominal Exam GI & Abdominal Exam: Normal Bowel Sounds, Soft. absent: Distended, Firm, Guarding, Rebound, Tenderness - Extremities Exam Extremities exam: Positive for: full ROM, normal capillary refill, pedal pulses present. Negative for: calf tenderness, pedal edema, tenderness Additional comments: 2.5 cm incision with packing noted to lateral L wrist. - Neurological Exam Neurological exam: Alert, CN II-XII Intact (grossly), Oriented x3 - Psychiatric Exam Psychiatric exam: Normal Affect, Normal Mood - Skin Additional comments: 2.5 cm incision with packing noted to lateral L wrist. Trace swelling to L hand. Tender to palpation. Capillary refill less than 2 seconds. Sensation intact. No crepitus. Results - Vital Signs Recent Vital Signs: Last Vital Signs Temp 98.9 F 09/07/18 23:40 Pulse 66 09/07/18 23:40 Resp 18 09/07/18 23:40 BP 103/64 09/07/18 23:40 Pulse Ox 98 09/07/18 23:40 - Labs Result Diagrams: 09/07/18 22:12 09/07/18 22:12 Labs: Laboratory Results - last 24 hr 09/07/18 09/07/18 22:12 22:12 WBC 12.3 H RBC 4.83 Hgb 13.4 Hct 39.5 MCV 81.9 MCH 27.9 MCHC 34.0 RDW 12.5 Plt Count 276 MPV 8.6 Neut % (Auto) 69.3 Lymph % (Auto) 23.7 [place] % (Auto) 5.9 Eos % (Auto) 0.8 Baso % (Auto) 0.3 Neut # (Auto) 8.6 H Lymph # (Auto) 2.9 [place] # (Auto) 0.7 Eos # (Auto) 0.1 Baso # (Auto) 0.0 Sodium 140 Potassium 4.2 Chloride 101 Carbon Dioxide 26 Anion Gap 17 BUN 14 Creatinine 0.6 L Est GFR ( Amer) > 60 Est GFR (Non-Af Amer) > 60 Random Glucose 148 H Calcium 9.4 Total Bilirubin 0.6 AST 29 ALT 23 Alkaline Phosphatase 110 Total Protein 7.9 Albumin 4.5 Globulin 3.4 Albumin/Globulin Ratio 1.3 Assessment & Plan - Assessment and Plan (Free Text) Plan: 33 year old male with PMHx of IVDA and atrial fibrillation admitted for L wrist abscess. L wrist Abscess -I&D in ED -L forearm XR f/u official read -F/u wound culture -F/u blood cx -F/u Hgb A1c -Zosyn 3.375 Q6H -Vancomycin 1g Q12H Heroin use disorder -Psych consult. Help appreciated -platform worker consult for rehab options -Follow up HIV and Hep C Possible paroxysmal atrial fibrillation Hx of LVEF 15% -Found to be in atrial fibrillation with RVR on previous detox admission 11/24/17 (patient eloped on 11/25/17) -EKG: Sinus tachycardia with 2nd degress AV block -Echo from previous admission 11/24/17: LV function is severely reduced, with diffuse hypokinesis. Septal wall motion is worse. LVEF is about 15%. LV diatolic function is indeterminate. Tissue doppler is c/w elevated left atrial pressure. Right ventricular systolic function is moderately reduced. LA volume index is mild to moderately increased. R atrium size is moderately increased. -Repeat 2D echo -Heparin 5000u SC Q8H Prophylaxis -Heparin 5000u SC Q8H -SCDs -GI prophylaxis not indicated at this time -HHD Case discussed with attending, Dr. Schmitt. <Curry Schmitt - Last Filed: 09/08/18 06:22> Results - Vital Signs Recent Vital Signs: Last Vital Signs Temp 98.5 F 09/08/18 00:48 Pulse 79 09/08/18 00:48 Resp 20 09/08/18 00:48 BP 124/82 09/08/18 00:48 Pulse Ox 100 09/08/18 00:48 - Labs Result Diagrams: 09/07/18 22:12 09/07/18 22:12 Labs: Laboratory Results - last 24 hr 09/07/18 09/07/18 22:12 22:12 WBC 12.3 H RBC 4.83 Hgb 13.4 Hct 39.5 MCV 81.9 MCH 27.9 MCHC 34.0 RDW 12.5 Plt Count 276 MPV 8.6 Neut % (Auto) 69.3 Lymph % (Auto) 23.7 [place] % (Auto) 5.9 Eos % (Auto) 0.8 Baso % (Auto) 0.3 Neut # (Auto) 8.6 H Lymph # (Auto) 2.9 [place] # (Auto) 0.7 Eos # (Auto) 0.1 Baso # (Auto) 0.0 Sodium 140 Potassium 4.2 Chloride 101 Carbon Dioxide 26 Anion Gap 17 BUN 14 Creatinine 0.6 L Est GFR ( Amer) > 60 Est GFR (Non-Af Amer) > 60 Random Glucose 148 H Calcium 9.4 Total Bilirubin 0.6 AST 29 ALT 23 Alkaline Phosphatase 110 Total Protein 7.9 Albumin 4.5 Globulin 3.4 Albumin/Globulin Ratio 1.3 Assessment & Plan - Date & Time Date: 09/08/18 (I have seen and examined the patient. I agree with the findings and plan of care as documented by Dr. Mclaughlin. Patient with abscess likely secondary to IVDA. Vanco and Zosyn. I&Ded in ED. Paroxysmal afib. Check 2D Echo. Heparin. EKG. Monitor for acute changes.) Time: 06:20 Attending/Attestation - Attestation I have personally seen and examined this patient.: Yes I have fully participated in the care of the patient.: Yes I have reviewed all pertinent clinical information: Yes
[2018-09-08 01:49] VITALS: RESP 20
[2018-09-08] MEDS: Piperacillin/Tazobact 3.375 GM in Sodium Chloride 100 ML IVPB SCH ×3 (05:38→17:46)
[2018-09-08 07:51] LABS: BASO % 0.3 % (0.0-2.0); EOS # 0.3 K/uL (0.0-0.7); EOS % 4.5 % (0.0-4.0); HEMOGLOBIN 12.6 g/dL (12.0-18.0); LYMPH # 1.6 K/uL (1.0-4.3); LYMPH % 23.3 % (20.0-40.0); MEAN CELL VOLUME 80.7 fL (80.0-94.0); MEAN CORPUSCULAR HEMOGLOBIN 28.6 pg (27.0-31.0); MEAN CORPUSCULAR HGB CONC 35.5 g/dL (33.0-37.0); MEAN PLATELET VOLUME 7.8 fL (7.2-11.7); MONO # 0.4 K/uL (0.0-0.8); MONO % 6.3 % (0.0-10.0); NEUT # 4.5 K/uL (1.8-7.0); NEUT % 65.6 % (50.0-75.0); NRBC % 0.1 % (0.0-2.0); RBC 4.39 Mil/uL (4.40-5.90); RED CELL DISTRIBUTION WIDTH 12.5 % (11.5-14.5); WHITE BLOOD COUNT 6.8 K/uL (4.8-10.8)
[2018-09-08 08:23] LABS: ALB/GLOB RATIO 1.3 (1.0-2.1); ALT/SGPT 23 U/L (21-72); AST/SGOT 33 U/L (17-59); BLOOD UREA NITROGEN 12 mg/dL (9-20); CALCIUM 9.1 mg/dl (8.6-10.4); GFR NON-AFRICAN AMERICAN > 60
--- NOTE | 2018-09-08 10:01 | RAD ---
Date of service: 09/07/2018 PROCEDURE: Radiographs of the Left Forearm HISTORY: distal forearm anterior swelling redness COMPARISON: None available. TECHNIQUE: Frontal and lateral views obtained. FINDINGS: BONES: No acute fracture or destructive bony lesion identified. JOINT SPACES: Unremarkable. OTHER FINDINGS: No retained radiodense foreign body or emphysema soft tissue changes are identified at the distal volar forearm soft tissues where limited swelling is identified. Reticular changes are identified in the subcutaneous fat proximal to this convex volar finding. Etiology unclear. IMPRESSION: No fracture or dislocation left forearm. Soft tissue edema is seen at the volar distal arm soft tissues of uncertain origin as discussed above.
--- NOTE | 2018-09-08 11:21 | PCM.PSYCH ---
Initial Psychiatric Evaluation - Initial Psychiatric Evaluation Type of Admission: Voluntary Legal Status: Capacity Chief Complaint (in patient's own words): I came here to get help.' History of Present Illness and Precipitating Events: Pt is a 33 year old male who is single with no children. 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 Pt with a history of IVDA came to [facility] for left arm pain and swelling. Today pt was consulted by psychiatry. Pt reports that he uses 4-6 bags of heroin a day intravenously. He has been using regularly for the past 3 years. He denies use of any other drugs including cocaine or marijuana. He smoked 2-3 cigarettes a day for the past 3 years as well. He denies excessive use of alcohol. He denies having been to detoxification or rehabilitation before. Pt is sleeping through the night and his appetite is intact. He denies feeling anxious or depressed. Pt denies any suicidal or homicidal ideations. He denies any hallucinations or paranoia. Pt denies any withdrawal symptoms including nausea, vomiting, sweating, tremors, or body aches. Past medical history: Denies Allergies: Denies Surgical history: Right hand Legal history: Denies Psychiatric history: Denies Family psychiatric history: Denies Current Medications: Active Medications Generic Name Dose Route Start Last Admin Trade Name Freq PRN Reason Stop Dose Admin Acetaminophen 650 mg 09/08/18 00:11 Tylenol 325mg Tab PO Q6 PRN Pain, moderate (4-7) Heparin Sodium (Porcine) 5,000 units 09/08/18 06:00 09/08/18 05:39 Heparin SC 5,000 units Q8 ANTON Administration Piperacillin Sod/Tazobactam 100 mls @ 200 mls/hr 09/08/18 06:00 09/08/18 05:38 Sod 3.375 gm/ Sodium Chloride IVPB 200 mls/hr Q6H ANTON Administration Protocol Vancomycin HCl 1,000 mg/ 250 mls @ 166.6 mls/hr 09/08/18 14:00 Sodium Chloride IVPB Q12H ANTON Protocol Influenza Virus Vaccine 60 mcg 09/10/18 10:05 Fluzone Quad [id number] IM 09/10/18 10:06 .ONCE ONE Pneumococcal Polyvalent Vaccine 0.5 ml 09/10/18 10:00 Pneumovax 23 Vaccine IM 09/10/18 10:01 .ONCE ONE Past Psychiatric History - Past Psychiatric History Previous Treatment History: None Pertinent Medical Hx (Current Medical&Sleep Prob, Allergies): Allergies Allergy/AdvReac Type Severity Reaction Status Date / Time No Known Allergies Allergy Unverified 09/07/18 21:16 No Known Home Med 11/24/17 Review of Systems - Review of Systems All systems: reviewed and no additional remarkable complaints except - Psychiatric Psychiatric: Anxiety, Irritability. absent: Suicidal Ideation Mental Status Examination - Personal Presentation Personal Presentation: Looks stated age - Affect Affect: Constricted - Motor Activity Motor Activity: Calm DSM 5 DX - DSM 5 DSM 5 Diagnosis: Opioid use disorder severe Opioid withdrawal - Recommended/Plan of Treatment Treatment Recommendations and Plan of Treatment: Opioid use disorder severe CBT Psychoeducation Supportive therapy, individual therapy Use [place] for abstinence Opioid withdrawal CBT Psychoeducation Supportive therapy, individual therapy Clonidine when necessary Methadone taper
--- NOTE | 2018-09-08 13:44 | CP.PCM.PN ---
Subjective - Date & Time of Evaluation Date of Evaluation: 09/08/18 Time of Evaluation: 11:30 - Subjective Subjective: PGY-1 Medicine Progress Note for Dr. Omalley Patient was seen and examined today at bedside in no acute distress. Nurse reports no overnight events. Patient is resting comfortably and has no new complaints. Denies chest pain, palpitations, dizziness, fever, numbness, tingling, swelling, skin changes. Objective - Vital Signs/Intake and Output Vital Signs (last 24 hours): Temp Pulse Resp BP Pulse Ox 97.4 F L 77 20 108/68 97 09/08/18 08:00 09/08/18 08:00 09/08/18 08:00 09/08/18 08:00 09/08/18 08:00 Intake and Output: 09/08/18 09/08/18 06:59 18:59 Intake Total 660 Balance 660 - Medications Medications: Current Medications Acetaminophen (Tylenol 325mg Tab) 650 mg PO Q6 PRN PRN Reason: Pain, moderate (4-7) Heparin Sodium (Porcine) (Heparin) 5,000 units SC Q8 ANTON Last Admin: 09/08/18 05:39 Dose: 5,000 units Piperacillin Sod/Tazobactam (Sod 3.375 gm/ Sodium Chloride) 100 mls @ 200 mls/hr IVPB Q6H ANTON; Protocol Last Admin: 09/08/18 12:44 Dose: 200 mls/hr Vancomycin HCl 1,000 mg/ (Sodium Chloride) 250 mls @ 166.6 mls/hr IVPB Q12H ANTON; Protocol Influenza Virus Vaccine (Fluzone Quad [id number]) 60 mcg IM .ONCE ONE Stop: 09/10/18 10:06 Pneumococcal Polyvalent Vaccine (Pneumovax 23 Vaccine) 0.5 ml IM .ONCE ONE Stop: 09/10/18 10:01 - Labs Labs: 09/08/18 07:33 09/08/18 07:33 - Constitutional Appears: Non-toxic, No Acute Distress - Head Exam Head Exam: ATRAUMATIC, NORMOCEPHALIC - Eye Exam Eye Exam: EOMI, Normal appearance, PERRL - ENT Exam ENT Exam: Mucous Membranes Moist - Respiratory Exam Respiratory Exam: Clear to Ausculation Bilateral, NORMAL BREATHING PATTERN. absent: Rales, Rhonchi, Wheezes - Cardiovascular Exam Cardiovascular Exam: +S1, +S2, +S4 - GI/Abdominal Exam GI & Abdominal Exam: Soft, Normal Bowel Sounds. absent: Tenderness - Extremities Exam Extremities Exam: Normal Capillary Refill Additional comments: 2.5 cm incision with packing noted to lateral L wrist. dressings c/d/i peripheral pulses palpable bilaterally (radial, ulnar, DP, PT) IV access in R hand - Neurological Exam Neurological Exam: Alert, CN II-XII Intact, Oriented x3 - Psychiatric Exam Psychiatric exam: Normal Affect, Normal Mood - Skin Additional comments: 2.5 cm incision with packing noted to lateral L wrist. Trace swelling to L hand. Tender to palpation. Capillary refill less than 2 seconds. Sensation intact. No crepitus Assessment and Plan - Assessment and Plan (Free Text) Assessment: 33 year old male with PMHx of IVDA and atrial fibrillation admitted for L wrist abscess s/p I&D in ED. Plan: L wrist Abscess -I&D in ED -XR L arm: no Fx of dislocation -F/u wound culture -F/u blood cx -Hgb A1c 5.4 -Zosyn 3.375g IVPB Q6H -Vancomycin 1g IVPB Q12H - Vanc trough 09/09 @ 1330 Heroin use disorder -Psych consult. Help appreciated -forestry workers consult for rehab options -HIV and Hep C negative Possible paroxysmal atrial fibrillation Hx of LVEF 15% -Found to be in atrial fibrillation with RVR on previous detox admission 11/24/17 (patient eloped on 11/25/17) -EKG: Sinus tachycardia with 2nd degree AV block -Echo from previous admission 11/24/17: LV function is severely reduced, with diffuse hypokinesis. Septal wall motion is worse. LVEF is about 15%. LV diatolic function is indeterminate. Tissue doppler is c/w elevated left atrial pressure. Right ventricular systolic function is moderately reduced. LA volume index is mild to moderately increased. R atrium size is moderately increased. -ECHO (09/08): pending read -Heparin 5000u SC Q8H Prophylaxis -Heparin 5000u SC Q8H -SCDs -GI prophylaxis not indicated at this time -HHD d/w Dr. Lyssa Capellan PGY-1
--- NOTE | 2018-09-08 19:22 | CARD ---
APPROVED REPORT Date of service: 09/08/2018 EXAM: Two-dimensional and M-mode echocardiogram with Doppler and color Doppler. Other Information Quality : GoodRhythm : INDICATION drug abuse,left cellulitis 2D DIMENSIONS IVSd1.0 (0.7-1.1cm)LVDd5.1 (3.9-5.9cm) PWd1.1 (0.7-1.1cm)LA Kcsgiw79 (18-58mL) LVDs4.3 (2.5-4.0cm)FS (%) 15.5 % LVEF (%)32.6 (>50%)LVEF (Irene's)36.24 % M-Mode DIMENSIONS RVDd1.89 (2.1-3.2cm)Left Atrium (MM)4.06 (2.5-4.0cm) IVSd1.11 (0.7-1.1cm)Aortic Root2.80 (2.2-3.7cm) LVDd6.38 (4.0-5.6cm)Aortic Cusp Exc.2.35 (1.5-2.0cm) PWd1.24 (0.7-1.1cm)FS (%) 20 % LVDs5.08 (2.0-3.8cm)TAPSE14.84 cm LVEF (%)41 (>50%) Mitral Valve MV E Zsqeoirx70.6cm/sMV A Gpbsqsui10.7cm/sE/A ratio1.3 TDI Lateral E' Peak V16.55cm/sMedial E' Peak V7.77cm/sE/Lateral E'4.3 E/Medial E'9.1 Tricuspid Valve TR Peak Bwpulujn820zr/sTR Peak Gr.[id number] LEFT VENTRICLE The Left Ventricle is moderately dilated. There is borderline to mild asymmetric left ventricular hypertrophy. Left ventricle systolic function is moderately to severely impaired.The Ejection Fraction is 30-35%. There is global hypokinesis of the left ventricle. The left ventricular diastolic function is normal. No left ventricle thrombus noted on this study. RIGHT VENTRICLE The right ventricle is normal size. The right ventricular systolic function is normal. ATRIA The left atrium is mildly dilated. The right atrium size is normal. AORTIC VALVE The aortic valve is mildly thickened. The aortic valve is trileaflet. No aortic regurgitation is present. There is no aortic valvular stenosis. There is no aortic valvular vegetation. MITRAL VALVE Mitral annular calcification is mild. There is no evidence of mitral valve prolapse. There is no mitral valve stenosis. Mitral regurgitation is mild to moderate. TRICUSPID VALVE The tricuspid valve is normal in structure. There is mild to moderate tricuspid regurgitation. Right ventricular systolic pressure is estimated at less than 30 mmHg. There is no pulmonary hypertension. There is no tricuspid valve prolapse or vegetation. There is no tricuspid valve stenosis. PULMONIC VALVE The pulmonary valve is normal in structure. There is mild pulmonic valvular regurgitation. There is no pulmonic valvular stenosis. GREAT VESSELS The aortic root is normal in size. The IVC is normal in size and collapses >50% with inspiration. PERICARDIAL EFFUSION There is no pericardial effusion. There is no pleural effusion. <Conclusion> There is borderline to mild asymmetric left ventricular hypertrophy. Left ventricle systolic function is moderately to severely impaired.The Ejection Fraction is 30-35%. The left ventricular diastolic function is normal. The right ventricle is normal size. The right ventricular systolic function is normal. The left atrium is mildly dilated. The right atrium size is normal. Mitral regurgitation is mild to moderate. There is mild to moderate tricuspid regurgitation. There is mild pulmonic valvular regurgitation.
[2018-09-09] MEDS: Piperacillin/Tazobact 3.375 GM in Sodium Chloride 100 ML IVPB SCH ×3 (00:10→13:00)
[2018-09-09 08:13] VITALS: BP 120/72; PULSE 59; TEMP 98.2; O2SAT 98
[2018-09-09 13:21] LABS: BASO # 0.1 K/uL (0.0-0.2); BASO % 0.9 % (0.0-2.0); EOS # 0.2 K/uL (0.0-0.7); EOS % 3.2 % (0.0-4.0); HEMOGLOBIN 14.5 g/dL (12.0-18.0); LYMPH % 34.2 % (20.0-40.0); MEAN CELL VOLUME 80.8 fL (80.0-94.0); MEAN CORPUSCULAR HEMOGLOBIN 28.3 pg (27.0-31.0); MEAN CORPUSCULAR HGB CONC 35.1 g/dL (33.0-37.0); MEAN PLATELET VOLUME 7.7 fL (7.2-11.7); MONO # 0.3 K/uL (0.0-0.8); MONO % 5.2 % (0.0-10.0); NEUT # 3.3 K/uL (1.8-7.0); NEUT % 56.5 % (50.0-75.0); NRBC % 0.1 % (0.0-2.0); RBC 5.13 Mil/uL (4.40-5.90); RED CELL DISTRIBUTION WIDTH 12.2 % (11.5-14.5); WHITE BLOOD COUNT 5.8 K/uL (4.8-10.8)
[2018-09-09 13:42] LABS: ALB/GLOB RATIO 1.3 (1.0-2.1); ALBUMIN 4.7 g/dL (3.5-5.0); ALT/SGPT 26 U/L (21-72); AST/SGOT 26 U/L (17-59); BLOOD UREA NITROGEN 9 mg/dL (9-20); CALCIUM 9.7 mg/dl (8.6-10.4); GFR NON-AFRICAN AMERICAN > 60
--- NOTE | 2018-09-09 14:58 | CP.PCM.DIS ---
Provider - Provider Date of Admission: 09/07/18 22:49 Attending physician: Curry Schmitt MD Time Spent in preparation of Discharge (in minutes): 45 Diagnosis - Discharge Diagnosis (1) Left against medical advice Status: Acute (2) Cutaneous abscess of left upper extremity Status: Acute (3) Systolic CHF Status: Acute Hospital Course - Lab Results Lab Results: Micro Results 09/07/18 07:29 Abscess - Abscess Gram Stain - Preliminary 09/07/18 07:29 Abscess - Abscess Wound Culture - Preliminary Gram Positive Cocci 09/07/18 07:26 Blood Blood Culture - Preliminary NO GROWTH AFTER 24 HOURS 09/07/18 22:15 Blood Blood Culture - Preliminary NO GROWTH AFTER 24 HOURS Most Recent Lab Values WBC 5.8 K/uL (4.8-10.8) 09/09/18 13:17 RBC 5.13 Mil/uL (4.40-5.90) 09/09/18 13:17 Hgb 14.5 g/dL (12.0-18.0) 09/09/18 13:17 Hct 41.4 % (35.0-51.0) 09/09/18 13:17 MCV 80.8 fL (80.0-94.0) 09/09/18 13:17 MCH 28.3 pg (27.0-31.0) 09/09/18 13:17 MCHC 35.1 g/dL (33.0-37.0) 09/09/18 13:17 RDW 12.2 % (11.5-14.5) 09/09/18 13:17 Plt Count 346 K/uL (130-400) 09/09/18 13:17 MPV 7.7 fL (7.2-11.7) 09/09/18 13:17 Neut % (Auto) 56.5 % (50.0-75.0) 09/09/18 13:17 Lymph % (Auto) 34.2 % (20.0-40.0) 09/09/18 13:17 Coke % (Auto) 5.2 % (0.0-10.0) 09/09/18 13:17 Eos % (Auto) 3.2 % (0.0-4.0) 09/09/18 13:17 Baso % (Auto) 0.9 % (0.0-2.0) 09/09/18 13:17 Neut # (Auto) 3.3 K/uL (1.8-7.0) 09/09/18 13:17 Lymph # (Auto) 2.0 K/uL (1.0-4.3) 09/09/18 13:17 Coke # (Auto) 0.3 K/uL (0.0-0.8) 09/09/18 13:17 Eos # (Auto) 0.2 K/uL (0.0-0.7) 09/09/18 13:17 Baso # (Auto) 0.1 K/uL (0.0-0.2) 09/09/18 13:17 Sodium 141 mmol/L (132-148) 09/09/18 13:17 Potassium 4.2 mmol/L (3.6-5.2) 09/09/18 13:17 Chloride 105 mmol/L (98-107) 09/09/18 13:17 Carbon Dioxide 26 mmol/L (22-30) 09/09/18 13:17 Anion Gap 14 (10-20) 09/09/18 13:17 BUN 9 mg/dL (9-20) 09/09/18 13:17 Creatinine 0.6 mg/dL (0.8-1.5) L 09/09/18 13:17 Est GFR ( Amer) > 60 09/09/18 13:17 Est GFR (Non-Af Amer) > 60 09/09/18 13:17 Random Glucose 95 mg/dL (75-110) 09/09/18 13:17 Hemoglobin A1c 5.4 % (4.2-6.5) 09/08/18 07:33 Calcium 9.7 mg/dl (8.6-10.4) 09/09/18 13:17 Total Bilirubin 0.5 mg/dL (0.2-1.3) 09/09/18 13:17 AST 26 U/L (17-59) 09/09/18 13:17 ALT 26 U/L (21-72) 09/09/18 13:17 Alkaline Phosphatase 138 U/L (38-126) H D 09/09/18 13:17 Total Protein 8.4 g/dL (6.3-8.3) H 11/08/18 13:17 Albumin 4.7 g/dL (3.5-5.0) 09/09/18 13:17 Globulin 3.7 gm/dL (2.2-3.9) 09/09/18 13:17 Albumin/Globulin Ratio 1.3 (1.0-2.1) 09/09/18 13:17 Hepatitis C Antibody Negative (NEGATIVE) 09/08/18 07:33 HIV 1&2 Antibody Screen Negative (NEGATIVE) 09/08/18 07:33 - Hospital Course Hospital Course: 33 year old male with PMHx of IVDA and atrial fibrillation presents to the ED for pain and swelling to L wrist that began 4 days ago. Pain is 7/10 and throbbing. States he took an antibiotic from a pharmacy without improvement of symptoms. Denies trauma, insect bite, . Denies fever, chills, numbness, tingling, diaphoresis, dizziness, lighteadedness, weakness, headache, chest pain, palpitations, shortness of breath, cough, abdominal pain, nausea, vomiting, diarrhea, constipation, hematochezia, dyusuria, frequency. Patient had I&D of the left arm at ED and was given Zosyn and Vancomycin. Forearm XR showed no fracture or dislocation. Started on Vanc/Zosyn IVPB empirically while waiting for blood and would culture results. EKG showed sinus tachycardia. Due to previous ECHO showing LVEF of 15% without cardio follow up, new ECHO showed LVEF is 30-35%, LA is mildly dilated, and Mitral regurgitation is mild to moderate, mild to moderate tricuspid regurgitation. Mild pulmonic valvular regurgitation. Psych was consulted for heroin abuse to start methadone taper; started at 15mg daily. However patient states that he used to receive 40mg at methadone clinic. Due to low methadone dose and wanting to return to work, patient decided to leave against medical advice. Primary Diagnosis: Left Against Medical Advice, Abscess-left forearm s/p I&D, systolic CHF You are leaving against medical advice. You are being given a prescription for o ral antibiotics. Please take them as prescribed: Clindamcin 150mg tablets. Take 450mg (3 tablets) by mouth four times a day. Drink lots of water with these pills. You have a follow up appointment at the [facility] at [facility], [place] at 9am on Thursday 09/13. You will need a referral to cardiology to follow up with your work up for your heart. Do your best to stay off heroin and make your appointments! Please be healthy. This is a summary of the hospital course. Please refer to EMR for more detail. - Date & Time of H&P Date of H&P: 09/09/18 Time of H&P: 14:20 Discharge Exam - Head Exam Head Exam: ATRAUMATIC, NORMOCEPHALIC - Eye Exam Eye Exam: EOMI, Normal appearance - ENT Exam ENT Exam: Mucous Membranes Moist - Respiratory Exam Respiratory Exam: Clear to PA & Lateral, UNREMARKABLE. absent: Rales, Rhonchi, Wheezes - Cardiovascular Exam Cardiovascular Exam: REGULAR RHYTHM, +S1, +S2, +S4 - GI/Abdominal Exam GI & Abdominal Exam: Normal Bowel Sounds, Soft. absent: Tenderness - Extremities Exam Additional comments: 2.5 cm incision with packing noted to lateral L wrist. dressings c/d/i peripheral pulses palpable bilaterally (radial, ulnar, PT) IV removed prior to discharge - Neurological Exam Neurological exam: Alert, Normal Gait, Oriented x3 - Psychiatric Exam Psychiatric exam: Anxious, Normal Mood - Skin Additional comments: cool to touch 2.5 cm incision with packing noted to lateral L wrist. Trace swelling to L hand. Capillary refill less than 2 seconds. Sensation intact. No crepitus Discharge Plan - Discharge Medications Prescriptions: Clindamycin [Cleocin] 450 mg PO QID #90 cap - Follow Up Plan Condition: GOOD Disposition: AGAINST MEDICAL ADVICE Additional Instructions: You are leaving against medical advice. You are being given a prescription for oral antibiotics. Please take them as prescribed: Clindamcin 150mg tablets. Take 450mg (3 tablets) by mouth four times a day. Drink lots of water with these pills. You have a follow up appointment at the [facility] at [facility], [place] at 9am on Thursday 09/13. You will need a referral to cardiology to follow up with your work up for your heart. Do your best to stay off heroin and make your appointments! Please be healthy. Referrals: [facility] at [facility] [Outside] Clinical Quality Measures - CQM - Heart Failure Ejection Fraction: Less Than 40 % CANDE Inhibitor Prescribed: No Contraindication/Reason for not providing: AMA Beta-Laurent Prescribed: None Contraindication/Reason for not providing: AMA Angiotensin II Receptor Laurent Prescribed: No Contraindication/Reason for not providing: AMA AnticoagulationTherapy for Atrial Fibrillation/Atrialflutter: No Contraindication/Reason for not providing: AMA Aldosterone Antagonist Prescribed: No Contraindication/Reason for not providing: AMA Hydralazine Nitrate Prescribed: No Contraindication/Reason for not providing: AMA Implantable Cardioverter Defibrillator Therapy: No Contraindication/Reason for not providing: AMA Cardiac Resynchronization Therapy Prescribed: No Contraindication/Reason for not providing: AMA
--- NOTE | 2018-09-09 21:57 | CARD ---
APPROVED REPORT Date of service: 09/08/2018 EKG Measurement Heart [id number] <Conclusion> Sinus arrhythmia with occasional short bursts of atrial fibrillation Abnormal ECG
[2018-09-10] MEDS ORDERED: Pneumococcal 23-Valent Vaccine IM ONE (10:00)
[2018-09-10] MEDS ORDERED: Influenza Vaccine 60 MCG/0.5 ML SYR (3 yr & up) IM ONE (10:05)
== END 2018-09-09 14:56 | disposition left against medical advice (07) ==
LOC: C.ER 21:08 → C.3T 22:49
PROVIDERS: ADMIT Family Medicine; ATTEND Family Medicine
DX: L02.414 Cutaneous abscess of left upper limb (principal); I50.20 Unspecified systolic (congestive) heart failure; L03.114 Cellulitis of left upper limb; I48.91 Unspecified atrial fibrillation; F19.10 Other psychoactive substance abuse, uncomplicated; M79.602 Pain in left arm; M25.432 Effusion, left wrist; F11.23 Opioid dependence with withdrawal; F17.210 Nicotine dependence, cigarettes, uncomplicated
CPT/HCPCS: 10060; 36415; 73090; 80053; 82009; 83036; 84600; 85025; 86703; 86803; 87040; 87070; 93005; 93306; 96365; 99284; G0378; G0480; J1644; J2543; J3370; J7050